=== PATIENT | male | born 1980 | race Caucasian/White ===

== ENCOUNTER 2020-09-14 17:17 | Emergency (ER) | payer MEDICAID ==
[~2020-09-14] VITALS: Ht 175.3 cm; Wt 96.5 kg
[2020-09-14 17:29] VITALS: BP 126/86
[2020-09-14] MEDS ORDERED: proparacaine 0.5% ophthalmic drops 15ml EACHEYE ONE (17:40)
[2020-09-14] MEDS ORDERED: TOBR5DRO47 RIGHTEYE (17:52)
== END 2020-09-14 18:24 | disposition home or self-care (01) ==
LOC: ER 17:17
DX: S05.01XA Injury of conjunctiva and corneal abrasion without foreign body, right eye, initial encounter (principal); X58.XXXA Exposure to other specified factors, initial encounter; Y93.89 Activity, other specified; Y92.89 Other specified places as the place of occurrence of the external cause; Y99.8 Other external cause status; F12.10 Cannabis abuse, uncomplicated; Z79.899 Other long term (current) drug therapy
CPT/HCPCS: 99283

== ENCOUNTER 2021-10-29 13:35 | Emergency (ER) | payer OTHER, MEDICAID ==
[~2021-10-29] VITALS: Ht 175.3 cm; Wt 95.0 kg
[~2021-10-29 13:35] MED LIST: TOBR5DRO47 RIGHTEYE
[2021-10-29 14:41] VITALS: BP 153/108
== END 2021-10-29 15:51 | disposition home or self-care (01) ==
LOC: ER 13:36
DX: S46.211A Strain of muscle, fascia and tendon of other parts of biceps, right arm, initial encounter (principal); F12.90 Cannabis use, unspecified, uncomplicated; Z79.899 Other long term (current) drug therapy; W18.39XA Other fall on same level, initial encounter; Y93.89 Activity, other specified; Y92.89 Other specified places as the place of occurrence of the external cause; Y99.8 Other external cause status
CPT/HCPCS: 99281